=== PATIENT | male | born 1990 | race Caucasian/White ===

== ENCOUNTER 2020-05-15 08:24 | Outpatient (CLI) | payer OTHER, SELFPAY ==
[2020-05-15 09:04] LABS: Liquefaction Semen Complete in 30 min. (<30 minutes); Semen Color Opaque (Grey-opaque); Semen Immotility 0 %; Semen Morphology Result to Follow; Semen Non-Progressive Motility 0 %; Semen Progressive Motility 0 % (>32); Semen Total Motility 0 (>40% (PM+NP)); Semen Viscosity Not Increased (Not Increa.); Sperm Count 0 Mil/mL (60-150 million/mL); Volume Semen 2.5 mL (1.5-5.0)
[2020-05-20 23:41] LABS: Fructose, Semen 201 mg/dL (150-600)
== END 2020-05-15 08:25 | disposition home or self-care (01) ==
LOC: CHSLAB 08:33
PROVIDERS: PCP Obstetrics & Gynecology; Visit Provider Obstetrics & Gynecology
DX: N46.9 Male infertility, unspecified (principal)
CPT/HCPCS: 82757; 88160; 89320

== ENCOUNTER 2020-06-01 10:15 | Outpatient (CLI) | payer OTHER, SELFPAY ==
[2020-06-01 11:24] LABS: Liquefaction Semen Complete in 30 min. (<30 minutes); Semen Color Opaque (Grey-opaque); Semen Immotility 20 %; Semen Non-Progressive Motility 20 %; Semen Progressive Motility 60 % (>32); Semen Total Motility 80 (>40% (PM+NP)); Semen Viscosity Not Increased (Not Increa.); Sperm Count 1.8 Mil/mL (60-150 million/mL); Volume Semen 1.5 mL (1.5-5.0)
[2020-06-01 11:25] LABS: Semen Morphology Result to Follow
[2020-06-01 11:49] LABS: Thyroid Stimulating Hormone 1.93 uIU/mL (0.36-3.74)
[2020-06-03 14:55] LABS: Fructose, Semen 245 mg/dL (150-600)
[2020-06-04 05:08] LABS: FSH 4.1 mIU/mL (1.6-8.0); LH 4.2 mIU/mL (1.5-9.3); Prolactin 6.6 ng/mL (***)
[2020-06-05 14:40] LABS: Testosterone Total 624 ng/dL (250-1100)
[2020-06-05 18:26] LABS: Estradiol, Ultrasensitive 22 pg/mL (< OR = 29)
== END 2020-06-01 10:16 | disposition home or self-care (01) ==
LOC: CHSLAB 10:17
PROVIDERS: PCP Urology; Visit Provider Urology
DX: N46.01 Organic azoospermia (principal)
CPT/HCPCS: 36415; 82670; 82757; 83001; 83002; 84146; 84403; 84443; 88160; 89320